=== PATIENT | female | born 1970 | race Caucasian/White ===

== ENCOUNTER 2020-12-20 15:05 | Outpatient (CLI) | payer BC, SELFPAY ==
--- NOTE | 2020-12-20 15:10 | MM_ITS ---
WS: [id number] BILATERAL DIGITAL SCREENING MAMMOGRAPHY WITH CAD CLINICAL INFORMATION: SCREENING HISTORY: Screening mammogram. No current complaints. COMPARISON: None. TECHNIQUE: Bilateral CC and MLO views. FINDINGS: Scattered fibroglandular densities bilaterally. No suspicious focal mass, asymmetry, calcifications, or architectural distortion. No evidence of malignancy. MM/[place] [id number] IMPRESSION: BI-RADS: 1-Negative FOLLOW UP: 1 Year Follow-up Recommend return to annual screening mammography.
== END 2020-12-20 15:06 | disposition home or self-care (01) ==
LOC: RADSHAW 15:09
PROVIDERS: PCP Nurse Practitioner; Visit Provider Family Medicine
DX: Z12.31 Encounter for screening mammogram for malignant neoplasm of breast (principal)
CPT/HCPCS: 77067

== ENCOUNTER 2023-11-29 08:28 | Day surgery (SDC) | payer BC, SELFPAY ==
[2023-11-29 08:42] VITALS: BMI 34.2
[2023-11-29 08:46] VITALS: BP 129/98; PULSE 74; RESP 18; TEMP 36.6; O2SAT 100
--- NOTE | 2023-11-29 08:52 | ANES.PREANE2 ---
Pre-Anesthetic Assessment Height/Weight: Height 1.68 m Weight 96.162 kg Temp Pulse Resp BP Pulse Ox O2 Del Method 97.8 F 74 18 129/98 100 Room Air 11/29/23 08:46 11/29/23 08:46 11/29/23 08:46 11/29/23 08:46 11/29/23 08:46 11/29/23 08:46 Preop Diagnosis: Screening Operation Date: 11/29/23 09:40 Proposed Procedures p Colonoscopy/ 94291: colon G0121 screen a colon risk z12.11 encounter for screening colonoscopy(Not Applicable) - Venkat Maldonado MD Familial anesthetic complications: None Was Beta Ila taken within 24 hours: N/A Was Clonidine taken within 24 hours: N/A Last intake: Intake Last Liquid Date 11/28/23 Last Liquid Time 22:30 Last Solid Date 11/27/23 Social No alcohol and No tobacco Exam alert, oriented x 3, clear to auscultation bilaterally and regular rate & rhythm Airway Submandibular: within normal limits Cervical ROM: within normal limits Mallampati: Class III Dentition: full History/ROS No significant history except as noted and No significant complaints Pulmonary None reported CV/HEM None reported None reported Hepatic None reported GI Gastroesophageal Reflux Disease (None this am) Metabolic Hyperlipidemia [facility] [place] None reported Neuropsych None reported Anesthetic Plan ASA status: 1 Anesthesia: Anesthesia Evaluation, General and MAC Risk of > 500 ml blood loss (7ml/kg in children): No Medications/Allergies Home Medications Medication Instructions Recorded Confirmed Last Taken Type elderberry fruit 350 mg capsule 350 mg PO DAILY 10/11/23 11/27/23 11/27/23 History lovastatin 40 mg tablet 40 mg PO DAILY 10/11/23 11/27/23 11/26/23 History omeprazole 20 mg capsule,delayed 20 mg PO .QOTHERDAY 10/11/23 11/27/23 11/27/23 History release vitamin B complex (B 1 tab PO DAILY 10/11/23 11/27/23 11/27/23 History Complex-Vitamin B12 tablet) cetirizine 10 mg tablet (Zyrtec) 10 mg PO DAILY 11/27/23 11/27/23 11/27/23 History Allergies Allergy/AdvReac Type Severity Reaction Status Date / Time ibuprofen AdvReac Unknown Unknown Unverified 11/29/23 08:53 Data Anesthesia Cardiac Studies: No Data to Display
--- NOTE | 2023-11-29 08:58 | W.PM.OPSFHP ---
Same Day Surgery H&P Indication for Procedure/HPI DATE OF PROCEDURE: November 29, 2023 CHIEF COMPLAINT/INDICATIONFOR SURGICAL PROCEDURE: need for screening colonoscopy PREOP DIAGNOSIS: Screening PLANNED PROCEDURE: Operation Date: 11/29/23 09:40 Proposed Procedures p Colonoscopy/ 22295: colon G0121 screen a colon risk z12.11 encounter for screening colonoscopy(Not Applicable) - Venkat Maldonado MD Medications/Allergies* Home Medications Medication Instructions Recorded Confirmed Type elderberry fruit 350 mg capsule 350 mg PO DAILY 10/11/23 11/27/23 History lovastatin 40 mg tablet 40 mg PO DAILY 10/11/23 11/27/23 History omeprazole 20 mg capsule,delayed 20 mg PO .QOTHERDAY 10/11/23 11/27/23 History release vitamin B complex (B 1 tab PO DAILY 10/11/23 11/27/23 History Complex-Vitamin B12 tablet) cetirizine 10 mg tablet (Zyrtec) 10 mg PO DAILY 11/27/23 11/27/23 History Allergies/Adverse Reactions Allergy/AdvReac Type Severity Reaction Status Date / Time ibuprofen AdvReac Unknown Unknown Unverified 11/29/23 08:53 Pertinent Exam Findings alert, oriented x 3 and clear to auscultation bilaterally Recommendations Surgery/Procedure today Coding Level of Care Code Acute Code for Chg Fwd
[2023-11-29] MEDS: sodium chloride 0.9% 1,000 ML 30 ML IV (09:02)
[2023-11-29 09:38] VITALS: BP 107/68; PULSE 95; RESP 12; TEMP 36.1; O2SAT 96
[2023-11-29 09:53] VITALS: BP 107/73; PULSE 81; RESP 16; O2SAT 95
--- NOTE | 2023-11-29 13:16 | ANE.PACU2 ---
Inpatient post-anesthesia follow up: Airway intact: Yes Vital signs: Temperature 97.0 F Pulse Rate 81 Respiratory Rate 16 Blood Pressure 107/73 Pulse Oximetry 95 Oxygen Delivery Me thod Room Air Oxygen Flow Rate Fraction of Inspir ed Oxygen Hydration adequate: Yes Nausea and vomiting: No Pain level: 2 Mental status: Baseline
== END 2023-11-29 10:07 | disposition home or self-care (01) ==
PROVIDERS: PCP Nurse Practitioner Family; Visit Provider Surgery
PROC: 0DJD8ZZ Inspection of Lower Intestinal Tract, Via Natural or Artificial Opening Endoscopic (ICD-10-PCS; CPT 45378; principal; 2023-11-29 09:40)
DX: Z12.11 Encounter for screening for malignant neoplasm of colon (principal); K21.9 Gastro-esophageal reflux disease without esophagitis; E78.5 Hyperlipidemia, unspecified
CPT/HCPCS: 45378; J2704; J7030

== ENCOUNTER 2024-02-28 09:16 | Outpatient (CLI) | payer SELFPAY ==
--- NOTE | 2024-02-28 09:21 | MM_ITS ---
WS: [id number] BILATERAL SCREENING DIGITAL TOMOSYNTHESIS MAMMOGRAM WITH CAD HISTORY: SCREENING COMPARISON: 12/20/2020 Bilateral CC and MLO views with tomosynthesis and synthetic mammography submitted. Computer aided det ection analyzed. Breast composition: There are scattered areas of fibroglandular density. No suspicious masses, microc alcifications or architectural distortion. MM/[place] [id number] IMPRESSION: BI-RADS: 1-Negative FOLLOW UP: 1 Year Follow-up
== END 2024-02-28 09:17 | disposition home or self-care (01) ==
LOC: RAD 09:16
PROVIDERS: PCP Nurse Practitioner Family; Visit Provider Nurse Practitioner Family
DX: Z12.31 Encounter for screening mammogram for malignant neoplasm of breast (principal)
CPT/HCPCS: 77063; 77067

== ENCOUNTER 2025-07-30 09:36 | Outpatient (CLI) | payer OTHER, SELFPAY ==
--- NOTE | 2025-07-30 09:40 | MM_ITS ---
WS: [id number] BILATERAL SCREENING DIGITAL TOMOSYNTHESIS MAMMOGRAM WITH CAD HISTORY: SCREENING COMPARISON: 02/28/2024, 12/20/2020 Bilateral CC and MLO views with tomosynthesis and synthetic mammography submitted. Computer aided detection analyzed. Breast composition: There are scattered areas of fibroglandular density. No suspicious masses, microcalcifications or architectural distortion. MM/MM scr BI tomosynthesis [id number] IMPRESSION: BI-RADS: 2 - Benign. FOLLOW UP: 1 Year Follow-up
== END 2025-07-30 09:37 | disposition home or self-care (01) ==
PROVIDERS: PCP Nurse Practitioner Family; Visit Provider Nurse Practitioner Family
DX: Z12.31 Encounter for screening mammogram for malignant neoplasm of breast (principal); R92.323 Mammographic fibroglandular density, bilateral breasts
CPT/HCPCS: 77063; 77067